=== PATIENT | male | born 1980 ===

== ENCOUNTER 2018-05-29 18:16 | Emergency (ER) | payer OTHER ==
[2018-05-29 18:20] VITALS: BMI 21.9
[2018-05-29 18:28] VITALS: O2SAT 98
[2018-05-29] MEDS ORDERED: Sodium Chloride 0.9% 1,000 ML IV ONE (18:44)
--- NOTE | 2018-05-29 18:49 | C.PDOC ---
"History Of Present Illness 38 year old male presents to the ED complaining of sudden onset of right sided flank pain that began 2 hours ago. Patient denies any urinary symptoms, fever, or vomiting. Patient reports chills and nausea. He denies any change of bowel movements or incontinence. He denies prior similar symptoms. Time Seen by Provider: 05/29/18 18:40 Chief Complaint (Nursing): Abdominal Pain History Per: Patient Onset/Duration Of Symptoms: Hrs Current Symptoms Are (Timing): Still Present Location Of Pain/Discomfort: Other (right flank) Associated Symptoms: Chills, Nausea. denies: Fever, Vomiting, Diarrhea, Urinary Symptoms Past Medical History Reviewed: Historical Data, Nursing Documentation, Vital Signs Vital Signs: Last Vital Signs Temp 99.9 F H 05/29/18 18:20 Pulse 62 05/29/18 18:20 Resp 17 05/29/18 18:20 BP 138/80 05/29/18 18:20 Pulse Ox 98 05/29/18 21:33 - Medical History PMH: No Chronic Diseases Surgical History: No Surg Hx Family History: States: No Known Family Hx - Social History Hx Alcohol Use: Yes Hx Substance Use: No - Immunization History Hx Tetanus Toxoid Vaccination: No Hx Influenza Vaccination: No Hx Pneumococcal Vaccination: No Review Of Systems Constitutional: Positive for: Chills. Negative for: Fever Gastrointestinal: Positive for: Nausea, Abdominal Pain (Left sided flank pain ) . Negative for: Vomiting, Diarrhea Physical Exam - Physical Exam Appears: Non-toxic, Other (Mild discomfort ) Skin: Normal Color, Warm, Dry Head: Atraumatic, Normacephalic Eye(s): bilateral: Normal Inspection Nose: Normal Oral Mucosa: Moist Neck: Supple Chest: Symmetrical Cardiovascular: Rhythm Regular Respiratory: Normal Breath Sounds, No Rales, No Rhonchi, No Wheezing Gastrointestinal/Abdominal: Normal Exam, Bowel Sounds (Active ), Soft, No Tenderness, No Guarding Back: CVA Tenderness (Right Sided ) Neurological/Psych: Oriented x3, Normal Speech Gait: Steady ED Course And Treatment - Laboratory Results Result Diagrams: 05/29/18 20:50 05/29/18 20:50 Lab Interpretation: Abnormal (Elevated WBC 12.2, urine +RBC) O2 Sat by Pulse Oximetry: 98 (RA) Pulse Ox Interpretation: Normal - CT Scan/US CT abd/pelvis Other Rad Studies (CT/US): Read By Radiologist, Radiology Report Reviewed CT/US Interpretation: EXAM: CT Abdomen and Pelvis Without Intravenous Contrast. EXAM DATE/TIME: 05/29/2018 6:45 PM. CLINICAL HISTORY: 38 years old , male; Pain; Abdominal pain; Flank; Right; Additional info: Abd pain. TECHNIQUE: Axial computed tomography images of the abdomen and pelvis without intravenous contrast. All CT scans at this facility use at least one of these dose optimization techniques: automated. exposure control; mA and/or kV adjustment per patient size (includes targeted exams where dose is. matched to clinical indication); or iterative reconstruction. COMPARISON: No relevant prior studies available. FINDINGS: Lower thorax: Atelectasis in the bases. ABDOMEN: Liver: Normal. No mass. Gallbladder and bile ducts: Normal. No calcified stones. No ductal dilation. Pancreas: Normal. No ductal dilation. Spleen: Normal. No splenomegaly. Adrenals: Normal. No mass. Kidneys and ureters: Right-sided hydronephrosis and hydroureter is identified extending to a 4 mm. calculus seen in the proximal right ureter, noted on image 44 and causing obstruction. No left-sided. hydronephrosis. Stomach and bowel: Moderate fecal retention. Appendix: No evidence of appendicitis. PELVIS: FONTALVO, OSMAR | Preliminary Radiology Report. CONFIDENTIALITY STATEMENT. This report is intended only for the use of the referring physician, and only in accordance with law, If you received this in error, call [phone]. Page 2 of 2. Bladder: Unremarkable as visualized. Reproductive: Unremarkable as visualized. ABDOMEN and PELVIS: Intraperitoneal space: Normal. No free air. No significant fluid collection. Bones/joints: No acute fracture. No dislocation. Soft tissues: Small fat- containing umbilical hernia. Fat-containing inguinal hernias. Vasculature: Normal. No abdominal aortic aneurysm. Lymph nodes: Normal. No enlarged lymph nodes. IMPRESSION: Right-sided hydronephrosis and hydroureter is identified extending to a 4 mm calculus seen in the. proximal right ureter, noted on image 44 and causing obstruction. Thank you for allowing us to participate in the care of your patient. Dictated and Authenticated by: Harjeet Gracia MD. 05/29/2018 9:02 PM Eastern Time ([place] & [place]) Reevaluation Time: 21:33 Reassessment Condition: Improved (after IV fluids and medication.) Medical Decision Making Medical Decision Making: Plan: - CT Abd/Pel - Labs - Toradol 30mg IVP - Zofran 4mg IVP - Fluids - UA - Reassess Disposition Counseled Patient/Family Regarding: Studies Performed, Diagnosis, Need For Followup, Rx Given - Disposition Referrals: Sanjay Harding MD [Staff Provider] - Disposition: HOME/ ROUTINE Disposition Time: 21:34 Condition: IMPROVED Additional Instructions: Encourage fluids and strain all urine. Make an appointment with the urologist later this week. Prescriptions: Ketorolac Tromethamine [Toradol] 10 mg PO QID PRN #20 tab PRN Reason: Pain, Severe (8-10) Nitrofurantoin Macrocrystals [Macrobid] 1 cap PO BID #14 cap Ondansetron ODT [Zofran ODT] 1 odt PO QID PRN #10 odt PRN Reason: Nausea/Vomiting Tamsulosin [Flomax] 0.4 mg PO DAILY #30 cap Instructions: Kidney Stones in Adults Forms: [facility] (Swiss) - Clinical Impression Clinical Impression: Kidney stone on right side - Scribe Statement The provider has reviewed the documentation as recorded by the Scribe Carina Emery All medical record entries made by the Scribe were at my direction and personally dictated by me. I have reviewed the chart and agree that the record accurately reflects my personal performance of the history, physical exam, medical decision making, and the department course for this patient. I have also personally directed, reviewed, and agree with the discharge instructions and disposition."
[2018-05-29] MEDS ORDERED: Sodium Chloride 0.9% 1,000 ML ONE (18:59)
[2018-05-29 21:02] LABS: BASO # 0.1 K/uL (0.0-0.2); BASO % 0.6 % (0.0-2.0); EOS # 0.1 K/uL (0.0-0.7); EOS % 0.7 % (0.0-4.0); HEMOGLOBIN 13.9 g/dL (12.0-18.0); LYMPH # 1.2 K/uL (1.0-4.3); MEAN CELL VOLUME 83.5 fL (80.0-94.0); MEAN CORPUSCULAR HEMOGLOBIN 28.4 pg (27.0-31.0); MEAN PLATELET VOLUME 9.3 fL (7.2-11.7); MONO # 0.7 K/uL (0.0-0.8); MONO % 5.5 % (0.0-10.0); NEUT # 10.1 K/uL (1.8-7.0); NEUT % 83.2 % (50.0-75.0); NRBC % 0.2 % (0.0-2.0); RBC 4.9 Mil/uL (4.40-5.90); RED CELL DISTRIBUTION WIDTH 12.8 % (11.5-14.5); WHITE BLOOD COUNT 12.2 K/uL (4.8-10.8)
[2018-05-29 21:06] LABS: URINE BILIRUBIN NEGATIVE (NEGATIVE); URINE BLOOD 2+ (NEGATIVE); URINE CLARITY Clear (Clear); URINE COLOR Yellow (YELLOW); URINE GLUCOSE (UA) NORMAL (Normal); URINE LEUKOCYTE ESTERASE NEG Leu/uL (Negative); URINE PROTEIN NEGATIVE (NEGATIVE); URINE UROBILINOGEN NORMAL mg/dL (0.2-1.0)
[2018-05-29 21:14] LABS: ALB/GLOB RATIO 1.6 (1.0-2.1); ALBUMIN 3.8 g/dL (3.5-5.0); ALT/SGPT 29 U/L (21-72); AST/SGOT 14 U/L (17-59); BLOOD UREA NITROGEN 11 mg/dL (9-20); CALCIUM 8.6 mg/dl (8.6-10.4); GFR AFRICAN-AMERICAN > 60; GFR NON-AFRICAN AMERICAN > 60
[2018-05-29 21:49] VITALS: BP 126/69; PULSE 88; RESP 20; TEMP 97.1
--- NOTE | 2018-05-30 11:31 | CT ---
Date of service: 05/29/2018 PROCEDURE: CT Abdomen and Pelvis with Oral contrast. HISTORY: Abdominal pain COMPARISON: None. TECHNIQUE: Contiguous axial images of the abdomen and pelvis. . Coronal and Sagittal reformats generated. Radiation dose: Total exam DLP = 379.64 mGy-cm. This CT exam was performed using one or more of the following dose reduction techniques: Automated exposure control, adjustment of the mA and/or kV according to patient size, and/or use of iterative reconstruction technique. FINDINGS: LOWER THORAX: Mild passive/dependent type atelectasis seen both lung bases left greater than right. No effusion or basilar pneumothorax. Heart size is within range of normal. No significant pericardial effusion. LIVER: Liver exhibits relatively normal size and attenuation pattern without mass collection calcification. No gross intrahepatic biliary ductal dilatation. GALLBLADDER AND BILE DUCTS: Gallbladder incompletely distended. No evidence of intraluminal gallbladder calculi PANCREAS: Unremarkable. No mass. No ductal dilatation. SPLEEN: Unremarkable. No splenomegaly. ADRENALS: Unremarkable. KIDNEYS AND URETERS: . There is a obstructing approximately 5 mm calculus seen in the right UPJ with mild to moderate hydronephrosis. . There are on also infiltration changes seen in the mesentery adjacent to the right renal pelvis and proximal ureter. No other renal calculi are identified. No evidence of left-sided hydronephrosis. BLADDER: Urinary bladder incompletely distended which presumably accounts slight thick-walled appearance. Muscular hypertrophy may contribute. Correlation with urinalysis recommended to exclude cystitis REPRODUCTIVE: Prostate gland measures approximately 4.93 cm in transverse dimension. APPENDIX: Normal-appearing appendix best seen on coronal sequence image number [id number]. No periappendiceal inflammatory changes. BOWEL: Evaluation of the bowel is somewhat limited due to the lack of oral contrast. Stomach is distended with food debris liquid and air. Visualized loops of small bowel exhibit normal contour and caliber. No evidence acute mechanical small bowel obstruction. There is a large amount of stool seen within the colon particularly right-sided consistent with fecal retention/constipation. PERITONEUM: Unremarkable. No fluid collection. No free air. LYMPH NODES: There are multiple small nonspecific mesenteric and retroperitoneal lymph nodes. There is a small fat containing umbilical hernia. VASCULATURE: Unremarkable. No aortic aneurysm. BONES: No fracture or destructive lesion. OTHER FINDINGS: None. IMPRESSION: 5 mm obstructing calculus in the right UPJ region with mild right-sided hydronephrosis. The the findings consistent with fecal retention/ constipation. Multiple small nonspecific mesenteric and retroperitoneal lymph nodes.
== END 2018-05-29 21:49 | disposition home or self-care (01) ==
LOC: C.ER 18:16
DX: N20.0 Calculus of kidney (principal)
CPT/HCPCS: 74176; 80053; 81001; 85025; 87086; 96361; 96374; 96375; 99285; J1885; J2270; J2405; J7030